=== PATIENT | male | born 1995 | race Caucasian/White ===

== ENCOUNTER → 2016-11-26 | Outpatient (CLI) | payer BC | LOC: EDSEX 13:04 → BMCIMAGING 13:04 | PROVIDERS: ATTEND Emergency Medicine | DX: R06.02 Shortness of breath (principal) ==

== ENCOUNTER 2017-02-16 19:08 | Emergency (ER) | payer BC ==
[2017-02-16 19:20] VITALS: TEMP 98.2
--- NOTE | 2017-02-16 20:15 | EDPHY ---
H & P Stated Complaint: dizzy, right ear problem, nausea Time Seen by Provider: 02/16/17 20:01 HPI/ROS: CHIEF COMPLAINT: Right ear hearing loss HISTORY OF PRESENT ILLNESS: The patient is a 21-year-old man who comes to the emergency department stating that he lost hearing in his right ear for about a day. He states that this happens about every 5 or 6 weeks and that his symptoms resolved spontaneously after a day or 2. He denies any pain. He denies any fever. He denies any sinus congestion or recent infection. No trauma. He has occasional ringing when it happens. He does not have a cerumen impaction. No head trauma. No vertigo or dizziness. REVIEW OF SYSTEMS: Constitutional: denies: chills, fever, recent illness, recent injury EENTM: See HPI Respiratory: denies: cough, shortness of breath Cardiac: denies: chest pain, irregular heart rate, lightheadedness, palpitations Gastrointestinal/Abdominal: denies: abdominal pain, diarrhea, nausea, vomiting, blood streaked stools Genitourinary: denies: dysuria, frequency, hematuria, pain Musculoskeletal: denies: joint pain, muscle pain Skin: denies: lesions, rash, jaundice, bruising Neurological: denies: headache, numbness, paresthesia, tingling, dizziness, weakness Hematologic/Lymphatic: denies: blood clots, easy bleeding, easy bruising Immunologic/allergic: denies: HIV/AIDS, transplant EXAM: GENERAL: Well-appearing, well-nourished and in no acute distress. HEAD: Atraumatic, normocephalic. EYES: Pupils equal round and reactive to light, extraocular movements intact, sclera anicteric, conjunctiva are normal. ENT: TMs normal, nares patent, oropharynx clear without exudates. Moist mucous membranes. NECK: Normal range of motion, supple without lymphadenopathy or JVD. LUNGS: Breath sounds clear to auscultation bilaterally and equal. No wheezes rales or rhonchi. HEART: Regular rate and rhythm without murmurs, rubs or gallops. ABDOMEN: Soft, nontender, normoactive bowel sounds. No guarding, no rebound. No masses appreciated. BACK: No CVA tenderness, no spinal tenderness, step-offs or deformities EXTREMITIES: Normal range of motion, no pitting or edema. No clubbing or cyanosis. NEUROLOGICAL: Cranial nerves II through XII grossly intact. Normal speech, normal gait. 5/5 strength, normal movement in all extremities, normal sensation PSYCH: Normal mood, normal affect. SKIN: Warm, dry, normal turgor, no visible rashes or lesions. Source: Patient Exam Limitations: No limitations - Medical/Surgical History Hx Asthma: No Hx Chronic Respiratory Disease: No Hx Diabetes: No Hx Cardiac Disease: No Hx Renal Disease: No Hx Cirrhosis: No Hx Alcoholism: No Hx HIV/AIDS: No Hx Splenectomy or Spleen Trauma: No - Family History Significant Family History: No pertinent family hx - Social History Smoking Status: Never smoked Alcohol Use: Sober Drug Use: None Constitutional: Initial Vital Signs Temperature (C) 36.8 C 02/16/17 19:18 Heart Rate 52 L 02/16/17 19:18 Respiratory Rate 20 02/16/17 19:18 Blood Pressure 108/66 02/16/17 19:18 O2 Sat (%) 97 02/16/17 19:18 O2 Delivery Mode Room Air Allergies/Adverse Reactions: No Known Allergies Allergy (Unverified 02/16/17 19:17) Home Medications: Medication Instructions Recorded NK [No Known Home Meds] 02/16/17 Medical Decision Making ED Course/Re-evaluation: The patient has a normal exam and states that his symptoms have return to normal. He has an odd constellation of symptoms that are resolved currently. I will have him follow up with ENT. Differential Diagnosis: Partial list of the Differential diagnosis considered include but were not limited to; cerumen impaction, otitis media, sinus congestion and although unlikely based on the history and physical exam, I also considered Meniere's disease, vertigo. I discussed these differential diagnoses and the plan with the patient as well as the usual and expected course. The patient understands that the diagnosis is provisional and that in medicine we are not always correct and that further workup is often warranted. Usual and customary warnings were given. All of the patient's questions were answered. The patient was instructed to return to the emergency department should the symptoms at all worsen or return, otherwise to followup with the physician as we discussed. Departure - Departure Disposition: Home, Routine, Self-Care Clinical Impression: Ear anomaly Condition: Fair Instructions: Earache (ED) Referrals: NONE *PRIMARY CARE P,. [Primary Care Provider] - As per Instructions Fredo Figueroa PA [Physician Pop Singer] - As per Instructions
[2017-02-16 20:39] VITALS: BP 111/60; PULSE 57; RESP 16; O2SAT 96
== END 2017-02-16 20:39 | disposition home or self-care (01) ==
DX: Q17.9 Congenital malformation of ear, unspecified (principal)